=== PATIENT | male | born 1995 | race Caucasian/White ===

== ENCOUNTER 2018-08-10 19:33 | Emergency (ER) | payer OTHER ==
[2018-08-10 19:59] VITALS: BP 129/69
--- NOTE | 2018-08-10 20:09 | UC ---
Skin Complaint HPI - HPI Summary HPI Summary: 22 yo male presents with rash on his face. He tells me that he has had some sinus congestion and cold symptoms for the past 2 weeks, but seems to be getting better. Had a low grade fever 2 days ago, but not since. Since he had the fever - he washed his bedding last night. This morning he woke up with a red bumpy rash all over his face. Does not itch and is not painful. No new detergents. Says that some of the spots have a yellow crust on them. - History of Current Complaint Chief Complaint: UCRash Time Seen by Provider: 08/10/18 20:08 Stated Complaint: RASH ON FACE Hx Obtained From: Patient Onset/Duration: Sudden Onset Current Severity: None Pain Intensity: 0 - Allergy/Home Medications Allergies/Adverse Reactions: Allergies Allergy/AdvReac Type Severity Reaction Status Date / Time No Known Allergies Allergy Verified 08/10/18 19:53 Review of Systems Constitutional: Negative Skin: Rash ENT: Negative Respiratory: Negative Cardiovascular: Negative Neurovascular: Negative Musculoskeletal: Negative Neurological: Negative Psychological: Negative All Other Systems Reviewed And Are Negative: Yes PMH/Surg Hx/FS Hx/Imm Hx - Additional Past Medical History Additional PMH: None Previously Healthy: Yes - Surgical History Surgical History: Yes Surgery Procedure, Year, and Place: right shoulder x2. left ACl repair - Family History Known Family History: Positive: None - Social History Occupation: Student Lives: With Family Alcohol Use: Occasionally Substance Use Type: None Smoking Status (MU): Never Smoked Tobacco Physical Exam - Summary Physical Exam Summary: GENERAL: NAD. WDWN. No pain distress. SKIN: FACE: Diffuse 2-3mm erythematous papules all about the cheeks, chin, and forehead. Around the mouth there is some yellow crusting on the papules. No edema, active drainage, or bleeding. NECK: Supple. Nontender. No lymphadenopathy. CHEST: No accessory muscle use. Breathing comfortably and in no distress. CV: Pulses intact. Cap refill <2seconds NEURO: Alert. PSYCH: Age appropriate behavior. Triage Information Reviewed: Yes Vital Signs: Initial Vital Signs Temp 98.1 F 08/10/18 19:54 Pulse 78 08/10/18 19:54 Resp 14 08/10/18 19:54 BP 129/69 08/10/18 19:54 Pulse Ox 99 08/10/18 19:54 Vital Signs Reviewed: Yes Course/Dx - Course Course Of Treatment: Suspect contact dermatitis vs staph infection. Will treat with prednisone and keflex. - Diagnoses Provider Diagnoses: Contact dermatitis. Impetigo Discharge - Sign-Out/Discharge Documenting (check all that apply): Patient Departure All imaging exams completed and their final reports reviewed: No Studies - Discharge Plan Condition: Stable Disposition: HOME Prescriptions: Cephalexin CAP* [Keflex CAP*] 500 mg PO TID #21 cap predniSONE TAB* [Deltasone 20 MG TAB*] 40 mg PO DAILY #12 tab Patient Education Materials: Impetigo (DC), Contact Dermatitis (ED) Referrals: No Primary Care Phys,NOPCP [Primary Care Provider] - Additional Instructions: If you develop a fever, shortness of breath, chest pain, new or worsening symptoms - please call your PCP or go to the ED. 1) Please take a benadryl daily 2) If your symptoms have not improved or have worsened after 2-3 days - please be rechecked - Billing Disposition and Condition Condition: STABLE Disposition: Home
== END 2018-08-10 20:33 | disposition home or self-care (01) ==
LOC: UCCORT 19:33
DX: L25.9 Unspecified contact dermatitis, unspecified cause (principal); L01.00 Impetigo, unspecified
CPT/HCPCS: 99202; G0463